=== PATIENT | female | born 1950 | race Caucasian/White ===

== ENCOUNTER 2019-03-24 07:40 | Outpatient (CLI) | payer OTHER ==
[2019-03-24] MEDS ORDERED: DIATR MEGLU/DIATRIZ SOD 30 ML SOLUTION PO ONE (08:05)
[2019-03-24] MEDS ORDERED: IOHEXOL 100 ML IV ONE (09:27)
== END 2019-03-24 21:03 | disposition home or self-care (01) ==
LOC: SCT 07:40
PROVIDERS: ATTEND Specialist
DX: K57.30 Diverticulosis of large intestine without perforation or abscess without bleeding (principal); K43.6 Other and unspecified ventral hernia with obstruction, without gangrene; N28.1 Cyst of kidney, acquired
CPT/HCPCS: 74177; Q9964; Q9967